=== PATIENT | male | born 1985 | race African-American/Black ===

== ENCOUNTER 2018-03-31 11:10 | Inpatient (IN) | payer OTHER ==
[~2018-03-31] VITALS: Ht 185.4 cm; Wt 93.0 kg
[2018-03-31 13:00] VITALS: BP 124/75
[2018-03-31] MEDS: OXYCODONE HCL 5MG TABLET PO PRN ×4 (13:43→23:20)
[2018-03-31] MEDS ORDERED: MEROPENEM 1,000 MG in SODIUM CHLORIDE 0.9% 100 ML IV SCH (13:45)
[2018-03-31] MEDS ORDERED: ONDANSETRON HCL 4MG TABLET PO PRN (13:45)
[2018-03-31] MEDS ORDERED: LACTULOSE 20G/30ML UDC PO PRN (13:45)
[2018-03-31 14:56] VITALS: BP 124/75
[2018-03-31 16:00] VITALS: BP 125/79
[2018-03-31] MEDS: MEROPENEM 2,000 MG in SODIUM CHLORIDE 0.9% 100 ML IV SCH ×2 (16:07→23:24)
[2018-03-31] MEDS: DOCUSATE SODIUM 100MG CAPSULE PO SCH (16:47)
[2018-03-31] MEDS ORDERED: VANCOMYCIN 2,000 MG in DEXT 5% WATER 500 ML IV NR ×2 (18:00→19:00)
[2018-03-31] MEDS: HYDROMORPHONE HCL/PF 2MG/ML CPJ IV PRN ×2 (18:42→21:21)
[2018-03-31 20:00] VITALS: BP 132/77
[2018-03-31] MEDS: POLYETHYLENE GLYCOL 3350 (17GM) 1 DOSE PACK PO SCH (21:13)
[2018-03-31] MEDS: CHLORPROMAZINE HCL 25 MG TABLET PO PRN (23:02)
[2018-03-31 23:22] LABS: BASOPHILS % 0.8 % (0.0-2.0); EOSINOPHILS % 4.5 % (0.0-5.0); HEMATOCRIT. 38.7 % (42.0-52.0); LYMPHOCYTES % 18.8 % (20.0-50.0); MEAN CORPUSCULAR HEMOGLOBIN 27.3 pg (28.0-32.0); MEAN CORPUSCULAR VOLUME 81.5 fL (80.0-94.0); MEAN PLATELET VOLUME 8.6 fl (7.4-10.4); MONOCYTES % 8.7 % (2.0-8.0); NEUTROPHILS % 67.2 % (40.0-76.0); PLATELET 251 x1000/uL (130-400); RED BLOOD CELL COUNT 4.75 mill/uL (4.7-6.1); RED CELL DISTRIBUTION WIDTH 17.1 % (11.6-14.6)
[2018-03-31 23:30] LABS: CHLORIDE 99 mEq/L (98-107)
[2018-04-01] MEDS: VANCOMYCIN 1,750 MG in DEXT 5% WATER 500 ML IV SCH ×3 (01:21→17:08)
[2018-04-01] MEDS: OXYCODONE HCL 5MG TABLET PO PRN ×5 (04:21→22:59)
[2018-04-01] MEDS: HYDROMORPHONE HCL/PF 2MG/ML CPJ IV PRN ×4 (05:23→21:08)
[2018-04-01] MEDS: PANTOPRAZOLE 40MG DR TABLET PO SCH (06:09)
[2018-04-01 06:17] LABS: HEMOGLOBIN 13.2 g/dL (14.0-18.0); MEAN CORPUSCULAR HEMOGLOBIN 26.9 pg (28.0-32.0); MEAN CORPUSCULAR VOLUME 81.5 fL (80.0-94.0); PLATELET 265 x1000/uL (130-400); RED BLOOD CELL COUNT 4.91 mill/uL (4.7-6.1); RED CELL DISTRIBUTION WIDTH 17.1 % (11.6-14.6)
[2018-04-01 06:40] LABS: CHLORIDE 100 mEq/L (98-107)
[2018-04-01] MEDS: DOCUSATE SODIUM 100MG CAPSULE PO SCH ×2 (08:05→17:08)
[2018-04-01] MEDS: BISACODYL 10MG SUPP PR SCH (08:09)
[2018-04-01 08:14] VITALS: BP 121/73
[2018-04-01] MEDS: MEROPENEM 2,000 MG in SODIUM CHLORIDE 0.9% 100 ML IV SCH ×3 (08:50→23:00)
[2018-04-01] MEDS: CHLORPROMAZINE HCL 25 MG TABLET PO PRN ×2 (08:50→17:08)
[2018-04-01] MEDS: CYCLOBENZAPRINE 10MG TABLET PO PRN (16:23)
[2018-04-01 20:00] VITALS: BP 120/64
[2018-04-01] MEDS: POLYETHYLENE GLYCOL 3350 (17GM) 1 DOSE PACK PO SCH (21:08)
[2018-04-02] MEDS: HYDROMORPHONE HCL/PF 2MG/ML CPJ IV PRN ×3 (00:23→06:42)
[2018-04-02] MEDS: OXYCODONE HCL 5MG TABLET PO PRN ×5 (02:21→23:14)
[2018-04-02] MEDS ORDERED: VANCOMYCIN 1,750 MG in DEXT 5% WATER 500 ML IV SCH (06:00)
[2018-04-02] MEDS: PANTOPRAZOLE 40MG DR TABLET PO SCH (06:17)
[2018-04-02 06:34] LABS: AMMONIA 49 uMol/L (<32)
[2018-04-02 06:36] LABS: BASOPHILS % 0.6 % (0.0-2.0); EOSINOPHILS % 4.6 % (0.0-5.0); HEMOGLOBIN. 13.3 g/dL (14.0-18.0); LYMPHOCYTES % 23.1 % (20.0-50.0); MEAN CORPUSCULAR VOLUME 81.5 fL (80.0-94.0); MEAN PLATELET VOLUME 8.8 fl (7.4-10.4); MONOCYTES % 11.5 % (2.0-8.0); NEUTROPHILS % 60.2 % (40.0-76.0); PLATELET 294 x1000/uL (130-400); RED BLOOD CELL COUNT 4.91 mill/uL (4.7-6.1); RED CELL DISTRIBUTION WIDTH 16.9 % (11.6-14.6)
[2018-04-02 06:48] LABS: CHLORIDE 99 mEq/L (98-107)
[2018-04-02 06:58] LABS: FOLIC ACID (FOLATE) SERUM 8.3 ng/mL (>5.38)
[2018-04-02 07:00] VITALS: BP 125/91
[2018-04-02 07:05] LABS: HEPATITIS B SURFACE ANTIGEN NEGATIVE
[2018-04-02 07:06] LABS: PHOSPHORUS 3.5 mg/dL (2.5-4.9)
[2018-04-02 07:08] LABS: TOTAL IRON BINDING CAPACITY 404 ug/dL (250-450)
[2018-04-02 07:34] LABS: HEPATITIS B CORE AB IGM NEGATIVE
[2018-04-02 07:35] LABS: HEPATITIS A AB IGM NEGATIVE (NEGATIVE)
[2018-04-02] MEDS: DOCUSATE SODIUM 100MG CAPSULE PO SCH ×2 (08:52→16:04)
[2018-04-02] MEDS: OXYCODONE HCL 10MG TABLET SR 12HR PO SCH ×2 (08:53→20:19)
[2018-04-02] MEDS: BISACODYL 10MG SUPP PR SCH (09:00)
[2018-04-02] MEDS: MEROPENEM 2,000 MG in SODIUM CHLORIDE 0.9% 100 ML IV SCH ×3 (09:19→23:48)
[2018-04-02 13:00] VITALS: BP 122/75
[2018-04-02] MEDS: FERROUS SULFATE 325MG TABLET PO SCH ×2 (13:08→16:04)
[2018-04-02] MEDS: LACTULOSE 20G/30ML UDC PO SCH ×2 (13:09→21:13)
[2018-04-02] MEDS: CYCLOBENZAPRINE 10MG TABLET PO PRN (15:27)
[2018-04-02] MEDS: CHLORPROMAZINE HCL 25 MG TABLET PO PRN ×2 (16:03→23:14)
[2018-04-02] MEDS: VANCOMYCIN 1250MG in DEXTROSE 5% WATER 250ML IV SCH (16:51)
[2018-04-02 20:00] VITALS: BP 110/63
[2018-04-02] MEDS: POLYETHYLENE GLYCOL 3350 (17GM) 1 DOSE PACK PO SCH (20:19)
[2018-04-02] MEDS: ASCORBIC ACID 500 MG TABLET PO SCH (20:19)
[2018-04-03] MEDS: VANCOMYCIN 1250MG in DEXTROSE 5% WATER 250ML IV SCH ×3 (01:25→17:04)
[2018-04-03] MEDS: OXYCODONE HCL 5MG TABLET PO PRN ×5 (02:50→23:10)
[2018-04-03] MEDS: LACTULOSE 20G/30ML UDC PO SCH ×3 (06:02→21:16)
[2018-04-03] MEDS: CHLORPROMAZINE HCL 25 MG TABLET PO PRN ×3 (06:03→20:38)
[2018-04-03] MEDS: PANTOPRAZOLE 40MG DR TABLET PO SCH (06:03)
[2018-04-03 06:46] LABS: BASOPHILS % 0.7 % (0.0-2.0); EOSINOPHILS % 4.3 % (0.0-5.0); HEMATOCRIT. 41.4 % (42.0-52.0); HEMOGLOBIN. 13.8 g/dL (14.0-18.0); LYMPHOCYTES % 18.2 % (20.0-50.0); MEAN CORPUSCULAR HEMOGLOBIN 27.2 pg (28.0-32.0); MEAN CORPUSCULAR VOLUME 81.6 fL (80.0-94.0); MEAN PLATELET VOLUME 8.7 fl (7.4-10.4); MONOCYTES % 9.9 % (2.0-8.0); NEUTROPHILS % 66.9 % (40.0-76.0); PLATELET 349 x1000/uL (130-400); RED BLOOD CELL COUNT 5.08 mill/uL (4.7-6.1); RED CELL DISTRIBUTION WIDTH 16.7 % (11.6-14.6)
[2018-04-03 06:54] LABS: AMMONIA 54 uMol/L (<32)
[2018-04-03 07:05] LABS: CHLORIDE 101 mEq/L (98-107)
[2018-04-03 08:00] VITALS: BP 132/86
[2018-04-03] MEDS: FERROUS SULFATE 325MG TABLET PO SCH ×3 (08:20→17:04)
[2018-04-03] MEDS: ASCORBIC ACID 500 MG TABLET PO SCH ×2 (08:20→20:08)
[2018-04-03] MEDS: MEROPENEM 2,000 MG in SODIUM CHLORIDE 0.9% 100 ML IV SCH ×3 (08:20→23:10)
[2018-04-03] MEDS: DOCUSATE SODIUM 100MG CAPSULE PO SCH ×2 (08:20→17:04)
[2018-04-03] MEDS: OXYCODONE HCL 10MG TABLET SR 12HR PO SCH ×2 (08:22→20:08)
[2018-04-03] MEDS: BISACODYL 10MG SUPP PR SCH (08:22)
[2018-04-03] MEDS ORDERED: ASCORBIC ACID 500 MG TABLET PO SCH (09:00)
[2018-04-03 15:12] LABS: AMMONIA 39 uMol/L (<32)
[2018-04-03 20:00] VITALS: BP 113/60
[2018-04-03] MEDS: POLYETHYLENE GLYCOL 3350 (17GM) 1 DOSE PACK PO SCH (20:09)
[2018-04-03] MEDS: CYCLOBENZAPRINE 10MG TABLET PO PRN (21:17)
[2018-04-04] MEDS: OXYCODONE HCL 5MG TABLET PO PRN ×3 (02:25→13:17)
[2018-04-04] MEDS: VANCOMYCIN 1 G PREMIX 200 ML IV SCH ×2 (04:33→13:06)
[2018-04-04] MEDS: PANTOPRAZOLE 40MG DR TABLET PO SCH (06:02)
[2018-04-04] MEDS: LACTULOSE 20G/30ML UDC PO SCH (06:02)
[2018-04-04 06:34] LABS: BASOPHILS % 0.5 % (0.0-2.0); EOSINOPHILS % 3.7 % (0.0-5.0); HEMATOCRIT. 40.7 % (42.0-52.0); HEMOGLOBIN. 13.7 g/dL (14.0-18.0); MEAN CORPUSCULAR HEMOGLOBIN 27.2 pg (28.0-32.0); MEAN CORPUSCULAR VOLUME 81.1 fL (80.0-94.0); MEAN PLATELET VOLUME 8.5 fl (7.4-10.4); NEUTROPHILS % 64.8 % (40.0-76.0); PLATELET 411 x1000/uL (130-400); RED BLOOD CELL COUNT 5.02 mill/uL (4.7-6.1); RED CELL DISTRIBUTION WIDTH 16.9 % (11.6-14.6)
[2018-04-04 06:46] LABS: CHLORIDE 99 mEq/L (98-107)
[2018-04-04 06:50] LABS: AMMONIA 42 uMol/L (<32)
[2018-04-04 07:58] VITALS: BP 133/95
[2018-04-04] MEDS: ASCORBIC ACID 500 MG TABLET PO SCH (08:38)
[2018-04-04] MEDS: DOCUSATE SODIUM 100MG CAPSULE PO SCH (08:38)
[2018-04-04] MEDS: FERROUS SULFATE 325MG TABLET PO SCH (08:38)
[2018-04-04] MEDS: OXYCODONE HCL 10MG TABLET SR 12HR PO SCH (08:39)
[2018-04-04] MEDS: BISACODYL 10MG SUPP PR SCH (09:00)
[2018-04-04] MEDS: MEROPENEM 2,000 MG in SODIUM CHLORIDE 0.9% 100 ML IV SCH (09:38)
[2018-04-04 13:17] VITALS: BP 133/95
[2018-04-05] MEDS ORDERED: FAMOTIDINE 20MG TABLET PO SCH (09:00)
[2018-04-07 15:07] LABS: 25-HYDROXY VITAMIN D3 33 ng/mL (.)
== END 2018-04-04 14:35 | disposition home health service (06) | DRG 56 ==
PROVIDERS: ADMIT Physical Medicine & Rehabilitation Spinal Cord Injury Medicine; ATTEND Family Medicine Adult Medicine
DX: G95.0 Syringomyelia and syringobulbia (principal); G82.50 Quadriplegia, unspecified; K59.2 Neurogenic bowel, not elsewhere classified; G96.19 Other disorders of meninges, not elsewhere classified; R06.6 Hiccough; R13.10 Dysphagia, unspecified; R50.82 Postprocedural fever; D72.829 Elevated white blood cell count, unspecified; R53.81 Other malaise; R26.9 Unspecified abnormalities of gait and mobility; N31.9 Neuromuscular dysfunction of bladder, unspecified; D64.9 Anemia, unspecified; K59.00 Constipation, unspecified; R79.89 Other specified abnormal findings of blood chemistry; R20.0 Anesthesia of skin; G89.4 Chronic pain syndrome; N18.9 Chronic kidney disease, unspecified; N28.1 Cyst of kidney, acquired; R74.0 Nonspecific elevation of levels of transaminase and lactic acid dehydrogenase [LDH]; Q06.4 Hydromyelia; Z78.9 Other specified health status; Z98.1 Arthrodesis status
CPT/HCPCS: 36415; 76700; 80053; 80076; 80202; 82140; 82248; 82306; 82607; 82728; 82746; 83540; 83550; 83735; 84100; 84134; 84443; 84630; 85025; 85027; 86705; 86709; 86803; 87340; 92523; 92610; 93970; 97110; 97112; 97116; 97127; 97163; 97167; 97530; 97535; C1893; J1170; J2185; J3370; J7040; J7050; J7060; Q0161